=== PATIENT | male | born 1945 | race African-American/Black ===

== ENCOUNTER 2017-11-04 15:40 | Inpatient (IN) ==
[2017-11-04] MEDS ORDERED: ONDANSETRON 4 MG/2 ML VIAL IV PRN (16:32)
[2017-11-04] MEDS ORDERED: POTASSIUM CHLORIDE 20 MEQ TABLET PO PRN (16:32)
[2017-11-04] MEDS ORDERED: ACETAMINOPHEN 325 MG TABLET PO PRN (16:32)
[2017-11-04] MEDS ORDERED: diphenhydrAMINE CAP 25 MG CAPSULE PO PRN (16:32)
[2017-11-04] MEDS ORDERED: MAGNESIUM SULF RIDER 2 GM in PREMIX 1 EACH IV PRN (16:32)
[2017-11-04] MEDS ORDERED: POTASSIUM CHLORIDE RIDER 10 MEQ in PREMIX 1 EACH IV PRN (16:32)
[2017-11-04] MEDS ORDERED: MAGNESIUM SULF RIDER 4 GM in PREMIX 1 EACH IV PRN (16:32)
[2017-11-04] MEDS ORDERED: guaiFENesin/DM ER 600-30 MG TABLET PO PRN (16:32)
[2017-11-04 18:38] LABS: Apearance,Urine CLEAR (Clear); Bacteria,Urine Occasional /HPF (Few); Bilirubin,Urine Negative (Negative); Blood, Urine Small mg/dL (Negative); Glucose,Urine (UA) Negative (Negative); Ketones,Urine 5 mg/dL (Negative); Mucus,Urine Occasional /LPF (Occasional); Nitrite,Urine Negative (Negative); Protein,Urine 100 MG/DL; RBC,Urine 12 /HPF (0-4); Urine Color Yellow (Yellow); Urine Specific Gravity 1.014 (1.001-1.035); Urine Urobilinogen < 2.0 EU/DL (0.2-1.0); WBC,Urine 7 /HPF (0-6)
[2017-11-04 18:55] LABS: Hemoglobin 11.4 GM/DL (14.0-18.0); Red Blood Count 3.95 MC/CUMM (3.8-5.5); White Blood Count 5.5 T/CUMM (4-12)
[2017-11-04 18:56] LABS: Basophils % 0.4 % (0.0-0.8); Eosinophils # 0.3 10*3/uL (0.0-0.87); Eosinophils % 6.2 % (0.00-10.9); Immature Granulocytes % 0.6 %; Immature Granulocytes Absolute 0.03 #; Lymphocytes # 1.4 10*3/uL (1.4-4.0); Lymphocytes % 24.8 % (21.2-54.2); Mean Corpuscular HGB Conc 33.5 GM/DL (32-36); Mean Corpuscular Hemoglobin 29 PG (27-34); Mean Corpuscular Volume 86.1 FL (87-102); Monocytes # 0.5 10*3/uL (0.11-0.8); Neutrophils # 3.2 10*3/uL (1.4-7.4); Platelet Count 212 T/CUMM (130-400)
[2017-11-04 19:14] LABS: Calcium 8.9 MG/DL (8.5-10.1); Osmolality,Calculated 279.3 MOS/KG (273-304); Potassium 4.1 MMOL/L (3.5-5.1)
[2017-11-04] MEDS: DOCUSATE SODIUM 100 MG CAPSULE PO PRN (21:20)
[2017-11-05 05:21] LABS: Basophils % 0.4 % (0.0-0.8); Eosinophils # 0.3 10*3/uL (0.0-0.87); Hematocrit 33.3 VOL% (42.0-52.0); Hemoglobin 11.4 GM/DL (14.0-18.0); Immature Granulocytes % 0.4 %; Immature Granulocytes Absolute 0.02 #; Lymphocytes # 1.3 10*3/uL (1.4-4.0); Lymphocytes % 23.4 % (21.2-54.2); Mean Corpuscular HGB Conc 34.2 GM/DL (32-36); Mean Corpuscular Hemoglobin 29 PG (27-34); Mean Corpuscular Volume 84.1 FL (87-102); Mean Platelet Volume 11.4 FL (9.6-12.0); Monocytes # 0.5 10*3/uL (0.11-0.8); Monocytes % 9.4 % (1.7-12.7); Neutrophils # 3.4 10*3/uL (1.4-7.4); Neutrophils % 60.4 % (38.7-73.9); Platelet Count 224 T/CUMM (130-400); Red Blood Count 3.96 MC/CUMM (3.8-5.5); Red Cell Distribution Width 14.6 % (9.3-17.3); White Blood Count 5.7 T/CUMM (4-12)
[2017-11-05 05:34] LABS: Calcium 9.4 MG/DL (8.5-10.1); Osmolality,Calculated 279.3 MOS/KG (273-304); Potassium 3.9 MMOL/L (3.5-5.1)
[2017-11-05 09:29] LABS: Alanine Aminotransferase 20 U/L (16-61); Albumin 3.2 G/DL (3.4-5.0); Alkaline Phosphatase 41 U/L (45-117); Aspartate Amino Transferase 14 U/L (0-37); Bilirubin,Direct < 0.100 MG/DL (0.0-0.20); Bilirubin,Indirect 0.3 MG/DL (0.0-1.0); Bilirubin,Total < 0.39 MG/DL (0.2-1.0); Total Protein 7.2 G/DL (6.4-8.3)
[2017-11-05] MEDS ORDERED: ceFAZolin 1,000 MG VIAL IRRIG ONE (12:17)
[2017-11-05] MEDS: SPIRONOLACTONE 25 MG TABLET PO SCH (14:21)
[2017-11-05] MEDS: DOCUSATE SODIUM 100 MG CAPSULE PO PRN (14:21)
[2017-11-05] MEDS: PANTOPRAZOLE 40 MG TABLET PO SCH (14:22)
[2017-11-05] MEDS: hydroCHLOROthiazide 25 MG TABLET PO SCH (14:22)
[2017-11-05] MEDS: ASPIRIN EC 81 MG TABLET PO SCH (14:22)
[2017-11-05] MEDS: LISINOPRIL 10 MG TABLET PO SCH (14:22)
[2017-11-05] MEDS: BISACODYL 5 MG TABLET PO PRN (14:23)
[2017-11-05] MEDS: TAMSULOSIN 0.4 MG CAPSULE PO SCH (21:43)
[2017-11-05] MEDS: ATORVASTATIN 20 MG TABLET PO SCH (21:43)
[2017-11-05] MEDS: LACTULOSE 20 GM/30 ML UDCUP PO PRN (21:43)
[2017-11-06] MEDS ORDERED: hydrALAZINE 20 MG/1 ML VIAL IV PRN (00:01)
[2017-11-06] MEDS: hydrALAZINE 25 MG TABLET PO SCH ×4 (00:19→17:02)
[2017-11-06 04:30] LABS: Basophils % 0.4 % (0.0-0.8); Eosinophils # 0.3 10*3/uL (0.0-0.87); Eosinophils % 4.8 % (0.00-10.9); Hematocrit 37.2 VOL% (42.0-52.0); Hemoglobin 12.9 GM/DL (14.0-18.0); Immature Granulocytes % 0.7 %; Immature Granulocytes Absolute 0.05 #; Lymphocytes # 1.5 10*3/uL (1.4-4.0); Lymphocytes % 21.8 % (21.2-54.2); Mean Corpuscular HGB Conc 34.7 GM/DL (32-36); Mean Corpuscular Hemoglobin 29 PG (27-34); Mean Corpuscular Volume 83.6 FL (87-102); Mean Platelet Volume 11.3 FL (9.6-12.0); Monocytes # 0.6 10*3/uL (0.11-0.8); Monocytes % 8.4 % (1.7-12.7); Neutrophils # 4.5 10*3/uL (1.4-7.4); Neutrophils % 63.9 % (38.7-73.9); Platelet Count 250 T/CUMM (130-400); Red Blood Count 4.45 MC/CUMM (3.8-5.5); Red Cell Distribution Width 14.6 % (9.3-17.3)
[2017-11-06 04:59] LABS: Calcium 9.1 MG/DL (8.5-10.1); Osmolality,Calculated 278.4 MOS/KG (273-304); Potassium 3.5 MMOL/L (3.5-5.1)
[2017-11-06] MEDS ORDERED: FAMOTIDINE 20 MG/2 ML VIAL IV ONE (07:24)
[2017-11-06] MEDS ORDERED: ceFAZolin 1,000 MG VIAL ONE (07:28)
[2017-11-06] MEDS ORDERED: HEPARIN/NACL 0.9% 2 UNITS/ML 500 ML IV ONE (07:29)
[2017-11-06] MEDS ORDERED: TISSUE ADHESIVE 1 EACH APPLICATOR TOP ONE (07:29)
[2017-11-06] MEDS ORDERED: LIDOCAINE 1% 20 ML VIAL ONE (07:29)
[2017-11-06] MEDS ORDERED: PROPOFOL 200 MG/20 ML VIAL IV ONE (09:40)
[2017-11-06] MEDS ORDERED: LACTATED RINGERS 1,000 ML IV ONE (09:41)
[2017-11-06] MEDS ORDERED: MIDAZOLAM 2 MG/2 ML VIAL ONE (09:41)
[2017-11-06] MEDS ORDERED: PROPOFOL 500 MG/50 ML BOTTLE IV ONE (09:41)
[2017-11-06] MEDS ORDERED: fentaNYL 100 MCG/2 ML VIAL ONE (09:41)
[2017-11-06] MEDS ORDERED: SEVOFLURANE 1 UNIT/15 MINUTE INH ONE (09:41)
[2017-11-06] MEDS: ASPIRIN EC 81 MG TABLET PO SCH (11:35)
[2017-11-06] MEDS: PANTOPRAZOLE 40 MG TABLET PO SCH (11:35)
[2017-11-06] MEDS: LISINOPRIL 10 MG TABLET PO SCH (11:35)
[2017-11-06] MEDS: SPIRONOLACTONE 25 MG TABLET PO SCH (11:35)
[2017-11-06] MEDS: CARVEDILOL 3.125 MG TABLET PO SCH ×2 (11:37→21:19)
[2017-11-06] MEDS: hydroCHLOROthiazide 25 MG TABLET PO SCH (11:49)
[2017-11-06] MEDS: ATORVASTATIN 20 MG TABLET PO SCH (21:19)
[2017-11-06] MEDS: TAMSULOSIN 0.4 MG CAPSULE PO SCH (21:19)
[2017-11-06] MEDS: ZALEPLON 5 MG CAPSULE PO PRN (21:20)
[2017-11-07] MEDS ORDERED: ceFAZolin 1,000 MG in SYRINGE 1 EACH IV SCH (02:00)
[2017-11-07 04:22] LABS: Basophils % 0.3 % (0.0-0.8); Eosinophils # 0.4 10*3/uL (0.0-0.87); Eosinophils % 5.9 % (0.00-10.9); Hematocrit 34.1 VOL% (42.0-52.0); Hemoglobin 11.7 GM/DL (14.0-18.0); Immature Granulocytes % 0.4 %; Immature Granulocytes Absolute 0.03 #; Lymphocytes # 1.3 10*3/uL (1.4-4.0); Lymphocytes % 18.4 % (21.2-54.2); Mean Corpuscular HGB Conc 34.3 GM/DL (32-36); Mean Corpuscular Hemoglobin 29 PG (27-34); Mean Corpuscular Volume 83.8 FL (87-102); Mean Platelet Volume 10.8 FL (9.6-12.0); Monocytes # 0.5 10*3/uL (0.11-0.8); Monocytes % 7.3 % (1.7-12.7); Neutrophils # 4.8 10*3/uL (1.4-7.4); Neutrophils % 67.7 % (38.7-73.9); Platelet Count 210 T/CUMM (130-400); Red Blood Count 4.07 MC/CUMM (3.8-5.5); White Blood Count 7.1 T/CUMM (4-12)
[2017-11-07 04:41] LABS: Calcium 8.7 MG/DL (8.5-10.1); Osmolality,Calculated 276.5 MOS/KG (273-304); Potassium 3.7 MMOL/L (3.5-5.1)
[2017-11-07] MEDS ORDERED: CARVEDILOL 6.25 MG TABLET PO SCH (07:51)
[2017-11-07] MEDS: hydroCHLOROthiazide 25 MG TABLET PO SCH (08:03)
[2017-11-07] MEDS: SPIRONOLACTONE 25 MG TABLET PO SCH (08:03)
[2017-11-07] MEDS: hydrALAZINE 25 MG TABLET PO SCH (08:04)
[2017-11-07] MEDS: ASPIRIN EC 81 MG TABLET PO SCH (08:04)
[2017-11-07] MEDS: LISINOPRIL 10 MG TABLET PO SCH (08:04)
[2017-11-07] MEDS: PANTOPRAZOLE 40 MG TABLET PO SCH (08:04)
[2017-11-07] MEDS ORDERED: ADENOSINE 6 MG/2 ML VIAL ONE ×2 (09:29)
[2017-11-07] MEDS ORDERED: SOTALOL 80 MG TABLET PO SCH (10:00)
[2017-11-07] MEDS: SOTALOL 80 MG TABLET PO SCH ×2 (10:35→21:09)
[2017-11-07] MEDS ORDERED: ADENOSINE 6 MG/2 ML VIAL IV ONE (10:46)
[2017-11-07] MEDS: AMIODARONE 200 MG TABLET PO SCH ×2 (12:24→21:09)
[2017-11-07] MEDS: BISACODYL 5 MG TABLET PO PRN (13:58)
[2017-11-07] MEDS: oxyCODONE/ACETAMINOPHEN 5-325 MG TABLET PO PRN (16:04)
[2017-11-07] MEDS: TAMSULOSIN 0.4 MG CAPSULE PO SCH (21:09)
[2017-11-07] MEDS: ZALEPLON 5 MG CAPSULE PO PRN (21:09)
[2017-11-07] MEDS: ATORVASTATIN 20 MG TABLET PO SCH (21:09)
[2017-11-07] MEDS: LACTULOSE 20 GM/30 ML UDCUP PO PRN (21:14)
[2017-11-08] MEDS: oxyCODONE/ACETAMINOPHEN 5-325 MG TABLET PO PRN ×2 (00:45→06:25)
[2017-11-08 06:02] LABS: Calcium 8.6 MG/DL (8.5-10.1); Osmolality,Calculated 268.2 MOS/KG (273-304); Potassium 3.8 MMOL/L (3.5-5.1)
[2017-11-08] MEDS: hydroCHLOROthiazide 25 MG TABLET PO SCH (08:18)
[2017-11-08] MEDS: AMIODARONE 200 MG TABLET PO SCH (08:19)
[2017-11-08] MEDS: SOTALOL 80 MG TABLET PO SCH (08:19)
[2017-11-08] MEDS: PANTOPRAZOLE 40 MG TABLET PO SCH (08:19)
[2017-11-08] MEDS: SPIRONOLACTONE 25 MG TABLET PO SCH (08:19)
[2017-11-08] MEDS: LISINOPRIL 10 MG TABLET PO SCH (08:19)
[2017-11-08] MEDS: ASPIRIN EC 81 MG TABLET PO SCH (08:19)
[2017-11-08] MEDS: BISACODYL 5 MG TABLET PO PRN (11:32)
[2017-11-08] MEDS: DOCUSATE SODIUM 100 MG CAPSULE PO PRN (11:34)
[2017-11-08 12:01] VITALS: BP 152/90
[2017-11-08] MEDS: LACTULOSE 20 GM/30 ML UDCUP PO PRN (12:30)
[2017-11-09] MEDS ORDERED: AMIODARONE 200 MG TABLET PO SCH (09:00)
== END 2017-11-08 16:06 | disposition home health service (06) | DRG 227 ==
LOC: N.TELEN 17:39
PROVIDERS: ADMIT Internal Medicine Clinical Cardiac Electrophysiology; ATTEND Internal Medicine Clinical Cardiac Electrophysiology
PROC: CLDCICD (2017-11-06 07:45)